=== PATIENT | male | born 1960 | race Caucasian/White ===

== ENCOUNTER 2022-09-25 16:51 | Emergency (ER) | payer OTHER ==
[~2022-09-25] VITALS: Ht 175.3 cm; Wt 94.6 kg
[2022-09-25 17:19] VITALS: BP 133/76
[2022-09-25 20:04] LABS: BASOPHILS # (AUTO) 0.1 X10'3 (0-0.2); BASOPHILS % (AUTO) 1.2 % (0-1); EOSINOPHILS # (AUTO) 0.1 X10'3 (0-0.9); HEMATOCRIT 41.5 % (42.0-52.0); HEMOGLOBIN 13.6 g/dl (14.0-17.9); LYMPHOCYTES % (AUTO) 20.9 % (21-51); MEAN CORPUSCULAR HEMOGLOBIN 30.8 PG (27.0-31.0); MEAN CORPUSCULAR HGB CONC 32.7 g/dL (33.0-36.5); MEAN CORPUSCULAR VOLUME 94.1 FL (78-98); MEAN PLATELET VOLUME 7.2 FL (7.4-10.4); MONOCYTES # (AUTO) 0.6 X10'3 (0-0.9); NEUTROPHILS % (AUTO) 61.9 % (42-75); PLATELET COUNT 166 X10'3 (140-440); RED CELL DISTRIBUTION WIDTH 15.6 % (11.5-14.5); WHITE BLOOD COUNT 4.8 X10'3 (4.5-11.0)
[2022-09-25 20:17] LABS: ALANINE AMINOTRANSFERASE 26 U/L (12-78); ALBUMIN 3.8 G/DL (3.4-5.0); ALBUMIN/GLOBULIN RATIO 1.2 (1.1-1.5); ALKALINE PHOSPHATASE 93 IU/L (46-116); ANION GAP 6 (8-16); ASPARTATE AMINO TRANSFERASE 25 U/L (10-37); BILIRUBIN,TOTAL 0.8 MG/DL (0.1-1.0); BLOOD UREA NITROGEN 24 MG/DL (7-18); BUN/CREATININE RATIO 25.8 (10.0-20.0); CALCIUM 9.5 MG/DL (8.5-10.1); CHLORIDE 103 MMOL/L (99-107); CREATININE 0.93 MG/DL (0.60-1.10); GLUCOSE 80 MG/DL (70-104); POTASSIUM 4.6 MMOL/L (3.5-5.1); SODIUM 141 MMOL/L (135-145); TOTAL CARBON DIOXIDE 32.2 MMOL/L (24-32); TOTAL PROTEIN 7.1 G/DL (6.4-8.2); eGFR 82 ML/MIN
[2022-09-25] MEDS ORDERED: furosemide 20MG tablet PO ONE (21:35)
[2022-09-25] MEDS ORDERED: FURO-150 PO (22:07)
== END 2022-09-25 22:16 | disposition home or self-care (01) ==
LOC: ER 16:52
DX: R60.9 Edema, unspecified (principal); R07.89 Other chest pain; Z88.4 Allergy status to anesthetic agent
CPT/HCPCS: 36415; 71045; 71250; 74176; 80053; 83880; 84484; 85025; 93005; 99285